=== PATIENT | female | born 1975 | race Hispanic/Latino ===

== ENCOUNTER 2023-09-21 15:31 | Emergency (ER) | payer SELFPAY ==
[2023-09-21 16:20] VITALS: BP 133/73
[2023-09-21 16:46] LABS: % Basophils 0.9 % (0-2); % Eosinophils 1.9 % (0-6); % Immature Granulocytes 0.2 % (0-0.5); % Lymphocytes 46.6 % (20.5-51.1); % Monocytes 10.6 % (1.7-9.3); % Neutrophils 39.8 % (42.2-75.2); Absolute Basophils 0.1 10^3/uL (0-0.2); Absolute Eosinophils 0.1 10^3/uL (0-0.7); Absolute Lymphocytes 2.5 10^3/uL (1.2-3.4); Absolute Monocytes 0.6 10^3/uL (0.1-0.6); Absolute Neutrophils 2.1 10^3/uL (1.4-6.5); Hematocrit 38.2 % (37.0-47.0); Hemoglobin 13.4 g/dL (12.0-16.0); Mean Corp Hgb Conc. 35.1 g/dL (33.0-37.0); Mean Corpuscular Hgb 31.5 pg (27.0-31.0); Mean Corpuscular Volume 89.7 fL (81.0-99.0); Mean Platelet Volume 9.9 fL (7.4-10.4); Nucleated Red Blood Cells % 0 %; Platelet Count 305 10^3/uL (130-400); Red Blood Cell Count 4.26 10^6/uL (4.20-5.40); Red Cell Dist. Width 12.8 % (11.5-14.5); White Blood Cell Count 5.3 10^3/uL (4.8-10.8)
[2023-09-21 16:56] LABS: ALT (SGPT) 31 U/L (0-35); AST (SGOT) 34 U/L (14-36); Albumin 4.4 g/dl (3.5-5.0); Alkaline Phosphatase 81 U/L (38-126); Blood Urea Nitrogen 15 mg/dl (7-17); Calcium 9.5 mg/dl (8.4-10.2); Carbon Dioxide 27 mmol/L (22-30); Chloride 104 mmol/L (98-107); Glucose 98 mg/dl (70-99); Potassium 4.1 mmol/L (3.5-5.1); Sodium 140 mmol/L (135-145); Total Bilirubin 0.4 mg/dl (0.2-1.3); Total Protein 7.2 g/dl (6.3-8.2); eGFR > 60.00
[2023-09-21 17:06] LABS: HCG, Serum Qualitative Screen Negative
--- NOTE | 2023-09-21 19:33 | ED.GENMED ---
History of Present Illness
General
Chief Complaint: Visual Problem
Source: patient
Exam Limitations: none
Time Seen by Provider: 09/21/23 18:07
Nursing documentation reviewed up to this point in time: agreed with
Travel History
Have you had any contact with someone who has COVID-19?: No
Do you have any symptoms of coronavirus? Fever > 100 degrees, chills, cough, shortness of breath, sore throat, loss of taste or smell, muscle aches, or headache?: No
History of Present Illness
History of Present Illness:
Patient presents to ED secondary to transient right eye visual loss which occurred 2 days ago. Patient was evaluated by her bulb packer who recommended patient come to ED for evaluation. However, secondary to personal conflicts, patient
presents to ED for an evaluation today. Over the past 2 days, patient has not had any recurrent symptoms. Of note, patient has had ongoing headache with eye pain greater than 6 months. Patient has had number of glaucoma surgeries since then. At
the time of evaluation ED, patient is complaining of chronic headache and neck pain, without any acute deficit. Denies chest pain or palpitations. Denies loss of sensation or weakness. Denies recent illness. Denies difficulty with speech.
Denies difficulty with ambulation.
Past History
Past History
ED Past Medical History: Hypothyroidism
ED Past Surgical History: Orthopedic and Other (dev septum)
Social History
Tobacco: Smoker
Personal: Single
Living: with family
Employment: Employed
Review of Systems
Review of Systems
Allergies reviewed?: Yes
All Other Systems: ROS reviewed and negative except as documented in HPI and ROS
Constitutional: Reports no symptoms
EENT: Reports no symptoms
Respiratory: Reports no symptoms
Cardiac: Reports no symptoms
ABD/GI: Reports no symptoms
: Reports no symptoms
Musculoskeletal: Reports neck pain
Skin: Reports no symptoms
Neurological: Reports other (Visual loss)
Phy Exam
Physical Exam
Physical Exam:
Physical Exam
General: no apparent distress, not acutely ill. afebrile
Head: nc/at. eomi perrla
Neck: supple. no meningeal signs.
Heart: s1/s2 regular rate and rhythm, no murmur. equal radial pulses.
Lungs: no acute respiratory distress. clear bilaterally
Abdomen: normal bowel sounds. not tender.
Neuro: alert and oriented. no focal neurological deficits. normal speech.
Skin: no rash
Psychiatric: well kept. interactive and cooperative
Extremities: no edema. no calf tenderness.
Course
Orders/Labs/Results
Orders:
Orders
09/21/23 16:21
CT Head W/o Iv Contrast Urgent
Comment:
Reason For Exam: blood clot
09/21/23 16:26
CT Head & Neck Angio W/wo IV Urgent
Comment:
Reason For Exam: stroke symptoms
C-Reactive Protein Urgent
Comment: ADD ON
Complete Blood Count/With Diff Urgent
Comprehensive Metabolic Panel Urgent
Erythrocyte Sed Rate Urgent
Comment: ADD ON
HCG, Serum Qualitative Screen Urgent
Comment: ADD ON
09/21/23 16:43
Add On- LAB Urgent
Tests Added?: serum preg qual
09/21/23 19:19
Acetaminophen [Tylenol] 1,000 mg PO NOW STA
09/21/23 20:38
Add On- LAB Urgent
Tests Added?: esr, CRP
09/21/23 20:41
Aspirin 325 mg PO NOW STA
Clopidogrel Bisulfate [Plavix] 75 mg PO NOW STA
Abnormal Lab Results
09/21/23
16:26
MCH 31.5 H pg
(27.0-31.0)
Neutrophils % 39.8 L %
(42.2-75.2)
Monocytes % 10.6 H %
(1.7-9.3)
09/21/23 16:26
09/21/23 16:26
Vital Signs
Initial and Last Documented VS:
Initial Vital Signs
Pulse Resp Pulse Ox
56 17 97
09/21/23 16:13 09/21/23 16:13 09/21/23 16:13
Last Documented Vital Signs
Pulse Resp BP Pulse Ox
56 17 133/73 97
09/21/23 16:13 09/21/23 16:13 09/21/23 16:20 09/21/23 16:13
MDM/Problems Addressed
MDM/Problems Addressed:
CT head/CTA : no acute findings.
Discussed with (neurology) and discussed all findings. Recommends starting patient on asa/plavix/lipitor (80mg), along with urgent outpatient f/u.
Pt remains neurological intact during observation
*Critical Care Note
Total Time (30-74mins, 75-104mins- exclusive of procedures): Not Applicable
ED Attending Note
-
Portions of this chart may have been created with voice recognition software.� Occasional wrong word or��sound alike� substitutions may have occurred due to the inherent limitations of voice recognition software.
Discharge Plan
Departure
Patient Disposition: Home (Routine Discharge)
Date of Disposition: 09/21/23
Time of Disposition: 20:46
Patient with high blood pressure during this ER visit?: Yes
Discharge Problem:
Visual loss
Instructions: Transient Ischemic Attack (DC)
Prescriptions:
New
atorvastatin [Lipitor] 80 mg tablet
80 mg PO DAILY Qty: 30 0RF
clopidogrel [Plavix] 75 mg tablet
75 mg PO DAILY Qty: 30 0RF
No Action
ciprofloxacin-hydrocortisone [Cipro HC] 0.2 %/1 % drops,suspension
5 drp RIGHT EAR Q12H Qty: 1 0RF
hydrocodone-acetaminophen 5 MG/500 MG tablet
1 tab PO .Q4-6HPRN PRN (Reason: PAIN) Qty: 20 0RF
amoxicillin-pot clavulanate 875 MG/125 MG tablet
1 tab PO BID Qty: 20 0RF
Referrals:
Miah Mosqueda MD [Family Provider] -
Cat Gonzalez DO [Active] -
Activity Restrictions/Additional Instructions:
As discussed, please follow-up with referred neurologist for further evaluation and treatment. Your prescriptions have been sent electronically to [facility] in [place].
Interventions
Interventions:
*Risk Screen - Suicide Last Done: 09/21/23 18:00
*General Assessment Last Done: 09/21/23 21:16
*Neglect/Abuse Screening Last Done: 09/21/23 18:00
ED- Fall Risk Assessment Last Done: 09/21/23 18:00
*ED COVID-19 Vaccine History Last Done: 09/21/23 17:59
*Nursing Disposition Last Done: 09/21/23 21:16
ED- Neurological Assessment Last Done: 09/21/23 18:05
ED-EENT Assessment Last Done: 09/21/23 18:08
ED Swallowing Screen Last Done: 09/21/23 19:30
Discharge Date and Time
Discharge Date/Time: 09/21/23 21:16
Print Language: SLOVENIAN
[2023-09-21] MEDS: TYLENOL 1000 MG PO (19:36)
[2023-09-21 20:55] LABS: Erythrocyte Sed Rate 6 mm/hour (0-20)
[2023-09-21] MEDS: PLAVIX 75 MG PO (20:55)
[2023-09-21] MEDS: ASPIRIN 325 MG PO (20:55)
[2023-09-21 21:14] LABS: C-Reactive Protein < 5.00 mg/L (0.0-10.00)
== END 2023-09-21 21:16 | disposition home or self-care (01) ==
LOC: EMR 15:31
PROVIDERS: Student in an Organized Health Care Education/Training Program; EMERGENCY PHYSICIAN Emergency Medicine; FAMILY PHYSICIAN Ophthalmology
DX: H53.121 Transient visual loss, right eye (principal); R51.9 Headache, unspecified; M54.2 Cervicalgia; R03.0 Elevated blood-pressure reading, without diagnosis of hypertension; E03.9 Hypothyroidism, unspecified; F17.200 Nicotine dependence, unspecified, uncomplicated
CPT/HCPCS: 99285; 70450; 70496; 70498; 80053; 84703; 85025; 85652; 86140; Q9967

== ENCOUNTER → 2023-09-26 08:46 | Outpatient (REF) | payer OTHER, SELFPAY | LOC: MRI 08:46 | PROVIDERS: ATTENDING PHYSICIAN Psychiatry & Neurology Neurology; FAMILY PHYSICIAN Nurse Practitioner Adult Health | DX: G45.3 Amaurosis fugax (principal); H53.8 Other visual disturbances | CPT/HCPCS: 70553; A9575 ==

== ENCOUNTER → 2023-09-27 07:52 | Outpatient (REF) | payer OTHER, SELFPAY ==
[2023-09-27 08:56] LABS: Glycohemoglobin (HgbA1c) 5.6 % (4.0-5.6)
[2023-09-27 08:57] LABS: HDL Cholesterol 59 mg/dl; LDL Cholesterol, Calculated 69 mg/dl; Total Cholesterol 153 mg/dl (50-199); Triglyceride 128 mg/dl (10-149); Very Low Density Lipoprotein 25 mg/dl (0-30)
[2023-09-27 09:00] LABS: C-Reactive Protein < 5.00 mg/L (0.0-10.00)
[2023-09-27 12:53] LABS: Erythrocyte Sed Rate 6 mm/hour (0-20)
== END ==
LOC: CLINIC 07:52
PROVIDERS: ATTENDING PHYSICIAN Psychiatry & Neurology Neurology
DX: G45.3 Amaurosis fugax (principal); H53.8 Other visual disturbances
CPT/HCPCS: 36415; 80061; 83036; 85652; 86140

== ENCOUNTER → 2023-10-16 16:24 | Outpatient (REF) | payer OTHER, SELFPAY | LOC: RCS 16:24 | PROVIDERS: ATTENDING PHYSICIAN Nuclear Medicine Nuclear Cardiology; FAMILY PHYSICIAN Nurse Practitioner Family | DX: G45.3 Amaurosis fugax (principal); R07.89 Other chest pain | CPT/HCPCS: 93306 ==

== ENCOUNTER → 2023-11-21 10:28 | Outpatient (REF) | payer OTHER, SELFPAY ==
[2023-11-21 12:23] LABS: Free T4 0.89 ng/dl (0.78-2.19)
[2023-11-21 12:37] LABS: TSH 3.05 uIU/ml (0.47-4.68)
== END ==
LOC: CLINIC 10:28
PROVIDERS: ATTENDING PHYSICIAN Nurse Practitioner Adult Health
DX: E03.9 Hypothyroidism, unspecified (principal)
CPT/HCPCS: 36415; 84439; 84443

== ENCOUNTER → 2023-12-12 10:01 | Outpatient (REF) | payer OTHER, SELFPAY | LOC: RCS 10:01 | PROVIDERS: ATTENDING PHYSICIAN Nuclear Medicine Nuclear Cardiology; FAMILY PHYSICIAN Nurse Practitioner Family | DX: R07.89 Other chest pain (principal); I49.3 Ventricular premature depolarization | CPT/HCPCS: 93017; 93350 ==

== ENCOUNTER → 2024-02-21 07:22 | Outpatient (REF) | payer OTHER, SELFPAY | LOC: MRI 3T 07:22 | PROVIDERS: ATTENDING PHYSICIAN Psychiatry & Neurology Neurology; FAMILY PHYSICIAN Nurse Practitioner Adult Health | DX: M54.2 Cervicalgia (principal); M54.12 Radiculopathy, cervical region | CPT/HCPCS: 72141 ==

== ENCOUNTER → 2024-03-06 07:16 | Outpatient (REF) | payer OTHER, SELFPAY | LOC: EMG 07:16 | PROVIDERS: ATTENDING PHYSICIAN Psychiatry & Neurology Neurology | DX: M54.12 Radiculopathy, cervical region (principal); G56.01 Carpal tunnel syndrome, right upper limb | CPT/HCPCS: 95886; 95909 ==

== ENCOUNTER → 2024-05-12 09:07 | Outpatient (REF) | payer OTHER, SELFPAY ==
[2024-05-12 11:10] LABS: Free T4 0.72 ng/dl (0.78-2.19)
== END ==
LOC: CLINIC 09:07
PROVIDERS: ATTENDING PHYSICIAN Nurse Practitioner Adult Health
DX: E03.9 Hypothyroidism, unspecified (principal)
CPT/HCPCS: 36415; 84439; 84443

== ENCOUNTER → 2024-07-17 09:52 | Outpatient (REF) | payer OTHER, SELFPAY ==
[2024-08-01 04:30] LABS: HPV, High Risk Not Detected; HPV, High Risk Source Cervical
== END ==
LOC: CLINIC 09:52
PROVIDERS: ATTENDING PHYSICIAN Nurse Practitioner Adult Health
DX: Z12.4 Encounter for screening for malignant neoplasm of cervix (principal)
CPT/HCPCS: 87624; G0123

== ENCOUNTER → 2024-08-08 08:59 | Outpatient (REF) | payer OTHER, SELFPAY ==
[2024-08-08 10:30] LABS: Vitamin D, 25-OH*** 36.9 ng/mL (30-80)
[2024-08-08 10:43] LABS: TSH 3.47 uIU/ml (0.47-4.68)
== END ==
LOC: REG 08:59
PROVIDERS: ATTENDING PHYSICIAN Nurse Practitioner Adult Health
DX: E55.9 Vitamin D deficiency, unspecified (principal); E03.9 Hypothyroidism, unspecified
CPT/HCPCS: 36415; 82306; 84439; 84443

== ENCOUNTER → 2024-09-22 18:43 | Outpatient (REF) | payer SELFPAY | LOC: WDC 18:43 | PROVIDERS: ATTENDING PHYSICIAN Nurse Practitioner Adult Health | DX: Z12.31 Encounter for screening mammogram for malignant neoplasm of breast (principal) | CPT/HCPCS: 77063; 77067 ==

== ENCOUNTER → 2024-11-04 08:37 | Outpatient (REF) | payer OTHER, SELFPAY ==
[2024-11-04 09:17] LABS: Hematocrit 41.6 % (37.0-47.0); Hemoglobin 13.9 g/dL (12.0-16.0); Mean Corp Hgb Conc. 33.4 g/dL (33.0-37.0); Mean Corpuscular Hgb 30.3 pg (27.0-31.0); Mean Corpuscular Volume 90.6 fL (81.0-99.0); Platelet Count 279 10^3/uL (130-400); Red Blood Cell Count 4.59 10^6/uL (4.20-5.40); Red Cell Dist. Width 13.2 % (11.5-14.5); White Blood Cell Count 4.2 10^3/uL (4.8-10.8)
[2024-11-04 09:45] LABS: ALT (SGPT) 43 U/L (0-35); AST (SGOT) 37 U/L (14-36); Albumin 4.9 g/dl (3.5-5.0); Alkaline Phosphatase 75 U/L (38-126); Blood Urea Nitrogen 15 mg/dl (7-17); Calcium 9.6 mg/dl (8.4-10.2); Carbon Dioxide 26 mmol/L (22-30); Chloride 102 mmol/L (98-107); Glucose 94 mg/dl (70-99); HDL Cholesterol 62 mg/dl; LDL Cholesterol, Calculated 118 mg/dl; Potassium 4.3 mmol/L (3.5-5.1); Sodium 139 mmol/L (135-145); Total Bilirubin 0.8 mg/dl (0.2-1.3); Total Cholesterol 212 mg/dl (50-199); Total Protein 7.4 g/dl (6.3-8.2); Triglyceride 163 mg/dl (10-149); Very Low Density Lipoprotein 32 mg/dl (0-30); eGFR > 60.00
[2024-11-04 10:13] LABS: TSH Reflex To Free T4 0.55 uIU/ml (0.47-4.68)
[2024-11-04 10:43] LABS: Glycohemoglobin (HgbA1c) 5.4 % (4.0-5.6)
== END ==
LOC: REG 08:37
PROVIDERS: ATTENDING PHYSICIAN Nurse Practitioner Adult Health
DX: Z00.00 Encounter for general adult medical examination without abnormal findings (principal); Z83.3 Family history of diabetes mellitus
CPT/HCPCS: 36415; 80053; 80061; 83036; 84443; 85027

== ENCOUNTER → 2025-02-10 09:00 | Outpatient (REF) | payer OTHER, SELFPAY ==
[2025-02-10 10:53] LABS: ALT (SGPT) 27 U/L (0-35); AST (SGOT) 26 U/L (14-36); Albumin 4.6 g/dl (3.5-5.0); Alkaline Phosphatase 58 U/L (38-126); Blood Urea Nitrogen 17 mg/dl (7-17); Calcium 9.3 mg/dl (8.4-10.2); Carbon Dioxide 23 mmol/L (22-30); Chloride 111 mmol/L (98-107); Glucose 88 mg/dl (70-99); HDL Cholesterol 55 mg/dl; LDL Cholesterol, Calculated 114 mg/dl; Potassium 4.5 mmol/L (3.5-5.1); Sodium 142 mmol/L (135-145); Total Bilirubin 0.4 mg/dl (0.2-1.3); Total Cholesterol 201 mg/dl (50-199); Triglyceride 164 mg/dl (10-149); Very Low Density Lipoprotein 32 mg/dl (0-30); eGFR > 60.00
[2025-02-10 11:05] LABS: Free T4 0.79 ng/dl (0.78-2.19); Vitamin D, 25-OH*** 49.7 ng/mL (30-80)
== END ==
LOC: REG 09:00
PROVIDERS: ATTENDING PHYSICIAN Nurse Practitioner Adult Health
DX: E03.9 Hypothyroidism, unspecified (principal); G45.3 Amaurosis fugax; E55.9 Vitamin D deficiency, unspecified; R74.8 Abnormal levels of other serum enzymes
CPT/HCPCS: 36415; 80053; 80061; 82306; 84439; 84443

== ENCOUNTER → 2025-05-19 06:38 | Outpatient (REF) | payer OTHER, SELFPAY ==
[2025-05-19 08:27] LABS: TSH 0.30 uIU/ml (0.47-4.68)
== END ==
LOC: CLINIC 06:38
PROVIDERS: ATTENDING PHYSICIAN Nurse Practitioner Adult Health
DX: E03.9 Hypothyroidism, unspecified (principal); Z12.11 Encounter for screening for malignant neoplasm of colon
CPT/HCPCS: 36415; 84439; 84443

== ENCOUNTER → 2025-05-21 09:15 | Outpatient (REF) | payer OTHER, SELFPAY ==
[2025-05-23 16:06] LABS: FIT-Fecal Occult Blood Interp Negative
== END ==
LOC: REG 09:15
PROVIDERS: ATTENDING PHYSICIAN Nurse Practitioner Adult Health
DX: Z12.11 Encounter for screening for malignant neoplasm of colon (principal)
CPT/HCPCS: 83520